=== PATIENT | female | born 1980 | race Caucasian/White ===

== ENCOUNTER 2022-11-05 12:33 | Emergency (ER) | payer OTHER, MEDICAID, SELFPAY ==
[2022-11-05 12:47] VITALS: BP 120/87; PULSE 108; RESP 18; TEMP 36.8; O2SAT 98; BMI 22.3
--- NOTE | 2022-11-05 12:54 | DI.RAD.S_ITS ---
PROCEDURE: XR CHEST 2V INDICATIONS: cough [id number] TECHNIQUE: 2 views of the chest were acquired. COMPARISON: None. FINDINGS: Surgical changes and devices: None. Lungs and pleura: Lungs are clear. No pleural effusions or pneumothorax. Mediastinum: Mediastinal contours are normal. Heart size is normal. Bones and chest wall: No suspicious bony abnormalities. Soft tissues appear unremarkable. IMPRESSION: No evidence acute pulmonary process. Dictated by: Dashawn Canas M.D. on 11/05/2022 at 13:47 Approved by: Dashawn Canas M.D. on 11/05/2022 at 13:47
[2022-11-05 14:02] LABS: Influenza A - CEPHEID Flu A NEGATIVE (NEGATIVE); Influenza B - CEPHEID Flu B NEGATIVE (NEGATIVE); Respiratory Syncytial Virus Negative (Negative)
[2022-11-05 14:15] LABS: COVID-19 CEPHEID 4-PLEX PCR POSITIVE (Negative)
[2022-11-05 16:01] VITALS: PULSE 99; RESP 15; O2SAT 99
--- NOTE | 2022-11-05 16:01 | PC.NURSE ---
Pt highly anxious. Needed extensive verbal reassurance and repetitive teaching. Easy work of breathing. [place]/warm/dry. Taking po fluids well. Home w/ friend.
--- NOTE | 2022-11-05 16:41 | ED_ITS ---
HPI - URI/Sore Throat General Chief Complaint: Upper Respiratory Symptoms Stated Complaint: Bronchitis not getting better t-7 Time Seen by Provider: 11/05/22 13:56 Source: patient Mode of arrival: Ambulatory History of Present Illness HPI Narrative: 42-year-old female presenting with persistent upper respiratory symptoms including cough, congestion, generalized malaise, decreased solid food intake in the setting of recently diagnosed coronavirus infection approximately 3 weeks prior to presentation. Patient reports symptoms have been persistent since initial diagnosis. Patient reports significant stress in the setting of a of a family member. Patient concerned that her symptoms did not improve following trial of outpatient antibiotics for bronchitis. Patient continues to tolerate oral liquids without difficulty. Related Data Allergies Allergy/AdvReac Type Severity Reaction Status Date / Time No Known Drug Allergies Allergy Verified 11/05/22 12:53 Review of Systems Review of Systems Narrative: Constitutional, Eyes, ENT, Pulmonary, Cardiovascular, Gastrointestinal, Renal, Endocrine, Genitourinary, Musculoskeletal, Neurologic, Skin, and Psychiatric systems were reviewed and negative unless indicated in the HPI above. Patient History Social History Smoking Status: Never smoker Smoking Status: Never smoker alcohol intake frequency: 0-2 drinks per day Substance Use Type: does not use Exam Narrative Exam Narrative: Vitals reviewed. Nursing note reviewed Constitutional: interactive HENT: Moist mucous membranes EYES: No scleral icterus NECK: no masses CV: Well perfused peripherally, no cyanosis present PULM: Unlabored respirations, symmetric chest rise ABD: Non-distended MS: No gross deformities, no asymmetric edema noted SKIN: Warm and dry. PSYCH: Anxious affect NEURO: Follows simple commands, moves extremities, interactive with exam Initial Vital Signs Initial Vital Signs: Vital Signs Temperature 98.3 F 11/05/22 12:47 Pulse Rate 108 H 11/05/22 12:47 Respiratory Rate 18 11/05/22 12:47 Blood Pressure 120/87 11/05/22 12:47 Pulse Oximetry 98 11/05/22 12:47 Oxygen Delivery Method 11/05/22 12:47 Course Orders Ordered: ED Orders 11/05/22 12:54 XR chest 2V Stat 11/05/22 12:56 Covid-19 + FLU A/B + RSV - PCR Stat 11/05/22 14:36 EKG-12 Lead Stat Vital Signs Vital signs: Vital Signs - 8 hr 11/05/22 12:47 11/05/22 16:01 Temperature 98.3 F Pulse Rate 108 H 99 H Respiratory Rate 18 15 Blood Pressure 120/87 Pulse Oximetry 98 99 Oxygen Delivery Method Room Air Room Air MDM - URI/Sore Throat Lab Data Labs: Lab Results 11/05/22 Range/Units 12:56 SARS-CoV-2 (PCR) Positive H (Negative) Influenza A (RT-PCR) Flu a negative (NEGATIVE) Influenza B (RT-PCR) Flu b negative (NEGATIVE) RSV (PCR) Negative (Negative) MDM Narrative Medical decision making narrative: 42-year-old female presenting with persistent URI type symptoms in the setting of recently diagnosed coronavirus infection. On presentation vital signs are reassuring as above. Physical exam on presentation notable for well-appearing 42-year-old female who is in no acute distress, no increased work of breathing, no atypical rash sounds, patient is ambulatory without difficulty, reassuring cardiopulmonary exam, benign abdomen. Additional concern for postviral pneumonia, persistent symptoms in the setting of recently diagnosed coronavirus infection, dehydration, metabolic derangement, pulmonary embolism, occult ACS, stress response. EKG obtained on presentation without evidence of acute ischemia or significant arrhythmia, given duration of symptoms, ACS seems unlikely and further evaluation was deferred. Chest x-ray without evidence of postviral pneumonia, patient without oxygen requirement and overall well-appearing on bedside exam arguing against postviral pneumonia. Patient continues to tolerate oral intake without difficulty arguing against dehydration or electrolyte/metabolic abnormality. Patient without risk factors for pulmonary embolism, no significant shortness of breath on presentation in the emergency department, reassuring vitals argues against this diagnosis and further evaluation is deferred. Discussed overall reassuring evaluation in the emergency department. Viral swab notable for persistently positive coronavirus PCR test, likely representing persistent symptoms from initial coronavirus infection. Discussed plan for co nservative outpatient management and outpatient follow-up. Patient was instructed on return precautions. Discharge Plan Departure Patient Disposition: Home Clinical Impression: COVID-19 Instructions: DI for COVID-19 (Suspected or Confirmed ), COVID-19 Activity Restrictions/Additional Instructions: *You have been diagnosed with coronavirus infection. *What to do: *Please continue to maintain your hydration and food intake. *Please follow up with your primary care provider in 2-3 days, call for an appointment. Let them know you were seen in the Emergency Department and that we ask that you be seen in follow up. We will electronically transmit a record of today's note if your PCP is in our system *Return to Emergency Department if you should have any new, worsening or concerning symptoms, such as [fever greater than 101 F, shaking chills, worsening pain, persistent vomiting or other bothersome symptoms] Referrals: Miscellaneous,Doctor, MD [Primary Care Provider] - Visit Report Forms: Patient Portal/API
== END 2022-11-05 16:04 | disposition home or self-care (01) ==
PROVIDERS: Emergency Medicine; Emergency Provider Emergency Medicine
DX: U07.1 COVID-19 (principal); R00.2 Palpitations
CPT/HCPCS: 0241U; 71046; 93005; 93010; 99283; 99284

== ENCOUNTER 2022-12-22 20:26 | Emergency (ER) | payer OTHER, MEDICAID, SELFPAY ==
[2022-12-22 20:40] VITALS: BP 119/74; PULSE 95; RESP 21; TEMP 36.6; O2SAT 99
[2022-12-22 21:07] LABS: Appearance Urine UA CLOUDY; Bilirubin Urine UA NEGATIVE (NEGATIVE); Color Urine UA YELLOW; Glucose Urine UA NEGATIVE (Negative); Ketones Urine UA 1+ (NEGATIVE); Leukocyte Esterase Urine UA NEGATIVE (NEGATIVE); Nitrite Urine UA NEGATIVE (Negative); Occult Blood Urine UA NEGATIVE (Negative); Protein Urine UA NEGATIVE (Negative); Urobilinogen Urine UA 0.2 E.U./dL (0.2)
[2022-12-22 21:12] LABS: UR Morphine/Opiate cutoff 300 Negative (Negative); Ur Creatinine Normal (Normal); Ur Specific Gravity Normal (Normal); Urine Amphetamines Negative (Negative); Urine Barbiturates Negative (Negative); Urine Benzodiazepines Negative (Negative); Urine Cocaine Negative (Negative); Urine MDMA Negative (Negative); Urine Methadone Negative (Negative); Urine Methamphetamines Negative (Negative); Urine Oxycodone Negative (Negative); Urine Phencyclidine Negative (Negative); Urine Tetrahydrocannabinol Negative (Negative); Urine Tricyclic Antidepressant Negative (Negative); Urine pH Normal (Normal)
[2022-12-22 21:17] LABS: Amorphous Sediment Urine 2+
[2022-12-22 21:18] LABS: Bacteria Urine None Seen; Culture Indicated Urine Cult Not Indicated; RBC Urine None Seen (0-5/HPF); Squamous Epithelial Cell Urine 5-10 /HPF (0-5/HPF); WBC Urine None Seen (0-5/HPF)
--- NOTE | 2022-12-22 22:24 | PC.NURSE ---
I told her multiple times that our ED Doctor would see her and help her anxiety but she apparently left and told admitting person she was going to [facility] where she could talk to a psychiatrist hao.
== END 2022-12-22 21:45 | disposition left against medical advice (07) ==
PROVIDERS: Emergency Provider Emergency Medicine
DX: Z73.3 Stress, not elsewhere classified (principal)
CPT/HCPCS: 80305; 81001; 99281

== ENCOUNTER 2022-12-28 18:15 | Emergency (ER) | payer OTHER, MEDICAID, SELFPAY ==
[2022-12-28 18:20] VITALS: BP 116/68; PULSE 96; RESP 20; TEMP 36.3; O2SAT 100; BMI 21.2
[2022-12-28 18:42] LABS: COVID19 -Nasal RAPID Negative (Negative)
--- NOTE | 2022-12-28 18:48 | ED_ITS ---
HPI - Recheck/Abnormal Lab/Rx <Doris Hui PA-C - Last Filed: 12/28/22 18:52> General Chief Complaint: Recheck/Abnormal Lab/Rx Stated Complaint: exposed Covid & would like a PCR/ mental health Time Seen by Provider: 12/28/22 18:18 Source: patient Mode of arrival: Ambulatory History of Present Illness HPI narrative: 42-year-old female presents to the ED requesting a COVID-19 test, since she was exposed to COVID-19 6 days prior to arrival. Patient states that she has no symptoms, however states that she is extremely worried and stressed that she might have COVID-19. Patient states that her 2 months ago from COVID 19, which is why she is so anxious about catching COVID-19. Patient states that she is being treated for some mental health issues including PTSD caused by her 's . Patient denies fever, chills, rhinorrhea, cough, sore throat, chest pain, shortness of breath, abdominal pain, nausea, vomiting, dysuria, lightheadedness, dizziness, syncope. Related Data Allergies Allergy/AdvReac Type Severity Reaction Status Date / Time No Known Drug Allergies Allergy Verified 12/22/22 20:56 Review of Systems <Doris Hui PA-C - Last Filed: 12/28/22 18:52> Review of Systems ROS Unobtainable: All systems reviewed & are unremarkable except as noted in HPI and below Constitutional Constitutional: Denies chills, Denies fatigue, Denies fever(s), Denies frequent falls, Denies lethargy and Denies weakness Eyes Eyes: Denies change in vision, Denies eye discharge, Denies irritation and Denies loss of vision ENT Ears, Nose, Mouth, and Throat: Denies change in voice, Denies dizziness, Denies neck pain, Denies sore throat and Denies throat swelling Cardiovascular Cardiovascular: Denies chest pain, Denies irregular heart rhythm, Denies lightheadedness, Denies palpitations, Denies dyspnea, Denies dyspnea on exertion and Denies orthopnea Respiratory Respiratory: Denies cough, Denies dyspnea, Denies dyspnea on exertion and Denies wheezing Gastrointestinal Gastrointestinal: Denies abdominal pain, Denies change in bowel habits, Denies diarrhea, Denies nausea and Denies vomiting Genitourinary Genitourinary: Denies hematuria, Denies flank pain, Denies urinary incontinence and Denies urinary urgency Musculoskeletal Musculoskeletal: Denies back pain, Denies muscle weakness, Denies neck pain, Denies numbness and Denies tingling Integumentary/Breasts Skin/Breast: Denies pruritus, Denies erythema, Denies rash and Denies wounds Neurologic Neurologic: Denies behavioral changes, Denies confusion, Denies dizziness, Dayday es frequent falls, Denies loss of vision, Denies numbness, Denies tingling and Denies weakness Psychiatric Psychiatric: Denies anxiety, Denies behavioral changes, Denies confusion, Denies depression, Denies homicidal ideation and Denies suicidal ideation Endocrine Endocrine: Denies fatigue, Denies flushing and Denies palpitations Hematologic/Lymphatic Hematologic/Lymphatic: Denies easy bruising Allergic/Immunologic Allergic/Immunologic: Denies urticaria, Denies throat swelling and Denies wheezing Patient History <Doris Hui PA-C - Last Filed: 12/28/22 18:52> Social History Smoking Status: Never smoker Smoking Status: Never smoker alcohol intake frequency: holidays/special occasions only Substance Use Type: does not use Exam <Doris Hui PA-C - Last Filed: 12/28/22 18:52> Narrative Exam Narrative: Const General:?cooperative, healthy appearing and comfortable [facility] Head:?normal to inspection Ears:?hearing grossly normal bilaterally Nose:?external nose normal Face and sinus:?normal facial exam and sinuses nontender Mouth:?oral mucosae normal Throat:?posterior oropharynx normal Eyes General:?appearance normal, both eyes and all related structures Neck Neck:?normal visual inspection and no lymphadenopathy noted Resp Effort & Inspection:?normal respiratory effort Auscultation:?clear to auscultation bilaterally Cardio Rate:?regular rate Rhythm:?regular rhythm Neuro General:?patient alert, patient awake and patient oriented x3 Initial Vital Signs Initial Vital Signs: Vital Signs Temperature 97.4 F L 12/28/22 18:20 Pulse Rate 96 H 12/28/22 18:20 Respiratory Rate 20 12/28/22 18:20 Blood Pressure 116/68 12/28/22 18:20 Pulse Oximetry 100 12/28/22 18:20 Oxygen Delivery Method 12/28/22 18:20 <DO Melvin Sullivan Last Filed: 12/29/22 01:43> Initial Vital Signs Initial Vital Signs: Vital Signs Temperature 97.4 F L 12/28/22 18:20 Pulse Rate 96 H 12/28/22 18:20 Respiratory Rate 20 12/28/22 18:20 Blood Pressure 116/68 12/28/22 18:20 Pulse Oximetry 100 12/28/22 18:20 Oxygen Delivery Method 12/28/22 18:20 Course <Doris Hui PA-C - Last Filed: 12/28/22 18:52> Orders Ordered: ED Orders 12/28/22 18:21 COVID19 -Nasal RAPID/Pre-Proc Stat Vital Signs Vital signs: Vital Signs - 8 hr 12/28/22 18:20 Temperature 97.4 F L Pulse Rate 96 H Respiratory Rate 20 Blood Pressure 116/68 Pulse Oximetry 100 Oxygen Delivery Method Room Air <Teo Rawls DO - Last Filed: 12/29/22 01:43> Orders Ordered: ED Orders 12/28/22 18:21 COVID19 -Nasal RAPID/Pre-Proc Stat Vital Signs Vital signs: Vital Signs - 8 hr 12/28/22 18:20 Temperature 97.4 F L Pulse Rate 96 H Respiratory Rate 20 Blood Pressure 116/68 Pulse Oximetry 100 Oxygen Delivery Method Room Air MDM - Recheck/Abnormal Lab/Rx <RADHA Alvarez Last Filed: 12/28/22 18:52> Lab Data Labs: Lab Results 12/28/22 Range/Units 18:21 SARS-CoV-2 (PCR) Negative (Negative) MDM Narrative Medical decision making narrative: 42-year-old female presents to the ED requesting a COVID-19 test, since she was exposed to COVID-19 6 days prior to arrival. It is very reassuring that patient is not exhibiting any symptoms of a COVID-19 infection. Will swab patient for COVID-19, discharge home. Patient tested negative for COVID-19. Results discussed with patient. ED return precautions were discussed with patient. Patient verbalized understanding. <Teo Rawls DO - Last Filed: 12/29/22 01:43> Lab Data Labs: Lab Results 12/28/22 Range/Units 18:21 SARS-CoV-2 (PCR) Negative (Negative) Discharge Plan Departure Patient Disposition: Home Clinical Impression: Encounter for laboratory testing for COVID-19 virus Activity Restrictions/Additional Instructions: You were tested for COVID-19 in the emergency department today, since you were exposed to COVID-19 6 days ago. It is very reassuring that you do not have any symptoms. If you do develop symptoms in the next several days, you may take Tylenol or ibuprofen for your symptoms, maintain good hydration. If you do experience chest pain or shortness of breath, please return to the ED for further evaluation. Stand Alone Forms: Patient Portal/API <Teo Rawls DO - Last Filed: 12/29/22 01:43> Cosign ED Attending Davian Attestation: I was immediately available in the department for consultation. Documentation has been reviewed. I agree with assessment and plan.
--- NOTE | 2022-12-28 18:49 | PC.NURSE ---
Pt reports feeling anxious about covid after her recently of it. Asked pt if she feels that she has had good follow up after recent visit here for her mental health and she says she has. Offered to let her talk to social security assessor about any additional resources needed and she declines.
== END 2022-12-28 18:45 | disposition home or self-care (01) ==
PROVIDERS: Emergency Medicine; Emergency Provider Student in an Organized Health Care Education/Training Program
DX: Z20.822 Contact with and (suspected) exposure to COVID-19 (principal)
CPT/HCPCS: 87635; 99281; 99282; C9803